=== PATIENT | male | born 1960 | race Caucasian/White ===

== ENCOUNTER 2020-09-29 21:22 | Emergency (ER) | payer MEDICAID ==
[~2020-09-29] VITALS: Ht 193 cm; Wt 96.2 kg
[2020-09-29 21:35] VITALS: BP 194/109
--- NOTE | 2020-09-29 21:35 | NUR ---
ED Nurse Note: Patient walked into ED in moderate distress due to pain from not being able to urinate all day. Patient recently had neck surgery and had a brock cath inserted post surgery. He had the catheter removed around 0800 this morning. He was able to go home without complication, but later was unable to urinate even after drinking about a liter of cranberry juice. Patient reports severe suprapubic pain due to urinary retention. No discharge, dysuria or other urinary symptoms noted. AAOX4, ambulatory with steady gait. Breathing is normal and unlabored.
[2020-09-29 21:52] LABS: APPEARANCE,URINE SLIGHTLY CLOUDY; BILIRUBIN, URINE NEGATIVE (NEGATIVE); COLOR,URINE YELLOW; GLUCOSE, URINE (UA) NEGATIVE (NEGATIVE); KETONES,URINE NEGATIVE (NEGATIVE); LEUKOCYTE ESTERASE ,URINE NEGATIVE (NEGATIVE); NITRITE,URINE NEGATIVE (NEGATIVE); PH,URINE 5 (4.5-8.0); PROTEIN,URINE 2+ (NEGATIVE); UROBILINOGEN,URINE NORMAL MG/DL (0.0-1.0)
--- NOTE | 2020-09-29 22:00 | NUR ---
ED Nurse Note: Patient given leg bag and instructed on how to use and empty it. He verbalized understanding.
--- NOTE | 2020-09-29 22:03 | Emergency Room Report ---
History of Present Illness General Chief Complaint: Male Urogenital Problems Source: Patient Present Illness [facility] This patient had plastic surgery last week and had urinary retention after the surgery. He had a Lee catheter in place but that was removed this morning around 8 AM. He has not urinated all day today and has severe pain in his lower abdomen. Denies recent illness. Denies cough or congestion. Denies fever chills. He has no other complaints. 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 COVID-19 Screening: Negative COVID-19 COVID-19 Testing Source: unk Patient History Past Medical History: see triage record, HIV Social History: Denies: smoking, alcohol use, drug use Reviewed Nursing Documentation: PMH: Agreed; PSxH: Agreed Nursing Documentation-PMH Past Medical History: No History, Except For Review of Systems All Other Systems: negative except mentioned in HPI Physical Exam Vital Signs Date Time Temp Pulse Resp B/P (MAP) Pulse Ox O2 Delivery O2 Flow Rate FiO2 09/29/20 21:27 98.1 120 35 194/109 (137) 98 Room Air Sp02 EP Interpretation: reviewed, normal General Appearance: no apparent distress, alert, GCS 15, non-toxic Head: normocephalic, atraumatic Eyes: bilateral eye normal inspection, bilateral eye PERRL ENT: hearing grossly normal, normal pharynx, no angioedema, normal voice Neck: normal inspection, full range of motion Respiratory: no respiratory distress, no retraction, no accessory muscle use, speaking full sentences Cardiovascular #1: no edema, tachycardia Gastrointestinal: normal bowel sounds, non tender, soft, no guarding, no rebound, tenderness - TTP, distended bladder palpated. Rectal: deferred Musculoskeletal: back normal, normal range of motion, gait/station normal, non- tender Neurologic: alert, motor strength/tone normal, oriented x3, sensory intact, responsive, speech normal Psychiatric: judgement/insight normal, memory normal, mood/affect normal, no suicidal/homicidal ideation Skin: no rash, rash Medical Decision Making Diagnostic Impression: Primary Impression: Acute urinary retention Additional Impression: Postoperative urinary retention ER Course This patient had postoperative urinary retention. He failed removal of the Lee catheter today. Lee catheter was placed with a large amount of urine obtained and immediate relief of symptoms was obtained. Urinalysis was obtained as a precaution to assess for infection and there is no evidence of infection. The patient's plastic surgeon Dr. Condon called me and she will be arranging follow-up with a urologist tomorrow. Patient is given close return precautions and follow-up instructions. Laboratory Tests Test 09/29/20 21:42 Urine Color Yellow Urine Appearance Slightly cloudy Urine pH 5 (4.5-8.0) Urine Specific [place] 1.020 (1.005-1.035) Urine Protein 2+ (NEGATIVE) H Urine Glucose (UA) Negative (NEGATIVE) Urine Ketones Negative (NEGATIVE) Urine Blood 5+ (NEGATIVE) H Urine Nitrite Negative (NEGATIVE) Urine Bilirubin Negative (NEGATIVE) Urine Urobilinogen Normal MG/DL (0.0-1.0) Urine Leukocyte Esterase Negative (NEGATIVE) Urine RBC Tntc /HPF (0 - 0) H Urine WBC 0 /HPF (0 - 0) Urine Squamous Epithelial Cells None /LPF (NONE/OCC) Urine Bacteria Few /HPF (NONE) Last Vital Signs Date Time Temp Pulse Resp B/P (MAP) Pulse Ox O2 Delivery O2 Flow Rate FiO2 09/29/20 21:27 98.1 120 35 194/109 (137) 98 Room Air Status: improved Disposition: HOME, SELF-CARE Condition: Improved Delmis Uribe DO Sep 29, 2020 22:03
[2020-09-29] MEDS ORDERED: FLOMAX0.4 MG ORAL (22:21)
[2020-09-29 22:32] VITALS: BP 140/85
--- NOTE | 2020-09-29 22:32 | NUR ---
ER DISCHARGE NOTE: Patient is cleared to be discharged per ERMD, pt is aox4, on room air, with stable vital signs. pt was given dc and prescription instructions, pt was able to verbalize understanding, pt id band removed. pt is able to ambulate with steady gait. pt took all belongings.
== END 2020-09-29 22:32 | disposition home or self-care (01) ==
LOC: EMR 21:45
DX: Z09 Encounter for follow-up examination after completed treatment for conditions other than malignant neoplasm (principal); R33.8 Other retention of urine; Z98.890 Other specified postprocedural states
CPT/HCPCS: 51702; 81003; Z7502; 99283

== ENCOUNTER 2020-10-06 11:03 | Emergency (ER) | payer MEDICAID ==
[~2020-10-06] VITALS: Ht 193 cm; Wt 95.3 kg
[~2020-10-06 11:03] MED LIST: FLOMAX0.4 MG ORAL
--- NOTE | 2020-10-06 11:20 | NUR ---
PENA CATH INSERTED DRAINING TO BED SIDE BAG
--- NOTE | 2020-10-06 11:40 | NUR ---
ED Nurse Note: Pt had arrived to ED stating that brock was dislodged in not patent. New brock insert by CRN. Pt is calm comfortabl, resting in bed, no pain at this time. pt on the phone.
[2020-10-06 11:41] VITALS: BP 145/107
--- NOTE | 2020-10-06 12:05 | NUR ---
ED Nurse Note: PT TAKEN TO CT
[2020-10-06 12:12] VITALS: BP 129/89
--- NOTE | 2020-10-06 12:12 | NUR ---
ED Nurse Note: ct cancelled. pt returned
--- NOTE | 2020-10-06 12:14 | Emergency Room Report ---
History of Present Illness General Chief Complaint: Abdominal Pain Source: Patient Present Illness HPI 60M PMHx BPH sent by plastic surgeon Dr Condon for post-op urinary retention. Patient received elective plastic surgery two weeks ago. Urology saw him and has him on flomax BID. He had a failed removal of a brock catheter today, therefore is her for catheter with leg bag. Denies nausea, vomiting, diarrhea, fever, back pain, melena, hematochezia, saddle anesthesia, bowel/bladder incontinence. The patient's symptoms were gradual onset, severity was moderate, duration since 13 days, worse since this morning.. Quality: sore Past medical history: post op urinary retention Past surgical history: cosmetic Smoking: Denies Alcohol use: Denies Drug use: Denies Review of systems: CONST: No fevers or chills, No night sweats PULMONARY: No productive cough, No shortness of breath CARDIAC: No chest pain, No palpitations GI: No vomiting, No diarrhea , No melena_or_BRBPR : No dysuria, No hematuria, No discharge NEURO: No new_focal_weakness_or_numbness, No confusion, No vision changes 14 point Review of Systems is otherwise negative except per HPI Physical Exam: GENERAL: Awake_alert_ nontoxic, no acute distress Spo2 98% on RA -normal EYES: Extraocular muscles are intact. Conjunctivae clear. Lids without swelling ENT: External nose and ear normal_in_appearance. Oropharynx clear. Head_atraumatic, Moist_oral_mucosa NECK: No JVD. No meningismus. No thyromegaly. Supple. Trachea midline RESP: Normal respiratory effort. Symmetric rise. No stridor. Clear_to_auscultation_No_rales_No_wheezes CARDIAC: Tachy and regular rhytm. No_significant pedal edema. ABDOMEN: Soft. Nondistended. Suprapubic TTP _No_rebound_or_guarding. No masses. MSK: Normal muscle tone, without rigidity. Extremities without asymmetric deformity or swelling. SKIN: Warm and dry. No visible cyanosis or pallor NEUROLOGIC: Alert, oriented x3. Motor_and_sensation_grossly_intact. No truncal ataxia. Gait_normal Psych: Normal mood and affect, normal judgment and insight - COORDINATION OF CARE Case was discussed with: Patient , Patient's Physician Chart reviewed. Patient has hx of this in past s/p procedure. Medical Decision Making/Plan: DDx: prostatitis vs BPH vs post op urinary retention Patient was sent by plastic surgeon Dr Condon. I spoke with Dr Condon who states that patient failed catheter removal today and needs a leg bag. No red symptom flags noted. No fever or spinal pain. Doubt SEA, conus, cauda equina. Patient does not want to wait for UA results. Brock cath was inserted with large amount of yellow urine obtained, and immediate symptom relief. Patient has follow up with urology tomorrow. 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: No Nursing Documentation-H Past Medical History: No History, Except For Physical Exam Vital Signs Date Time Temp Pulse Resp B/P (MAP) Pulse Ox O2 Delivery O2 Flow Rate FiO2 10/06/20 11:15 98.2 115 20 145/107 (120) 94 Room Air Sp02 EP Interpretation: reviewed, normal Medical Decision Making Diagnostic Impression: Primary Impression: Postoperative urinary retention Last Vital Signs Date Time Temp Pulse Resp B/P (MAP) Pulse Ox O2 Delivery O2 Flow Rate FiO2 10/06/20 11:41 115 20 Room Air 10/06/20 11:41 98.2 145/107 94 Disposition: HOME, SELF-CARE Admit Decision Time: 12:13 Condition: Stable Patient Instructions: Acute Urinary Retention, Male, [id number] Additional Instructions: 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 Continue to double dose Flomax as prescribed. Follow-up with your doctor, Dr. Condon as well as your urologist. Follow-up with your doctor sooner if your condition requires a more timely clinical reevaluation. Return to the emergency department immediately if you feel that your condition is worsening or if you have any new or concerning symptoms. Review your discharge instructions and take any prescriptions given as instructed. [facility] PROVIDES FREE OR LOW-COST HEALTH SERVICES TO PEOPLE WHO CAN SHOW PROOF THAT THEY LIVE IN [facility]. TO FIND MORE CLINICS PARTNERED WITH [facility] TO PROVIDE SERVICE, PLEASE CALL . Elaine Parkinson D.O. Oct 06, 2020 12:14
[2020-10-06 13:21] LABS: APPEARANCE,URINE SLIGHTLY CLOUDY; BILIRUBIN, URINE NEGATIVE (NEGATIVE); COLOR,URINE PALE YELLOW; GLUCOSE, URINE (UA) NEGATIVE (NEGATIVE); KETONES,URINE NEGATIVE (NEGATIVE); LEUKOCYTE ESTERASE ,URINE 1+ (NEGATIVE); NITRITE,URINE NEGATIVE (NEGATIVE); PH,URINE 7 (4.5-8.0); PROTEIN,URINE 1+ (NEGATIVE); UROBILINOGEN,URINE NORMAL MG/DL (0.0-1.0)
== END 2020-10-06 12:20 | disposition home or self-care (01) ==
LOC: EMR 12:16
DX: N99.89 Other postprocedural complications and disorders of genitourinary system (principal); R33.9 Retention of urine, unspecified
CPT/HCPCS: 51702; 81003; 96374; Z7502; 99284